=== PATIENT | male | born 1980 | race Caucasian/White ===

== ENCOUNTER 2022-05-19 12:23 | Emergency (ER) | payer BC ==
[2022-05-19 12:48] VITALS: BP 124/80; PULSE 74; RESP 18; TEMP 98.6; BMI 25.0
[2022-05-19 13:19] LABS: HEMATOCRIT 41.5 % (35.4-49); HEMOGLOBIN 14.8 G/dL (11.7-16.9); MCH 33.6 pg (25.7-33.7); MCHC 35.6 g/dl (32.0-35.9); MEAN CELL VOLUME 94.4 fl (80-96); MEAN PLT VOLUME 8.5 fl (7.5-11.1); PLATELET COUNT 218.8 10^3/uL (134-434); RDW 12.6 % (11.9-15.9); WHITE BLOOD COUNT 8.2 10^3/uL (4.0-10.8)
[2022-05-19 13:26] LABS: ALBUMIN 4.6 g/dl (3.4-5.0); BILIRUBIN,TOTAL 0.7 mg/dl (0.2-1); CALCIUM 9.3 mg/dl (8.5-10); PHOSPHOROUS 3.5 mg/dl (2.5-4.9); TOT PROT 7.2 g/dl (6.4-8.2)
[2022-05-19 14:31] LABS: PLATELET ESTIMATE ADEQUATE
== END 2022-05-19 14:15 | disposition home or self-care (01) ==
LOC: FER 12:23
DX: R07.89 Other chest pain (principal); R42 Dizziness and giddiness
CPT/HCPCS: 36415; 71046-TC-FY; 80053; 83735; 84100; 84484; 85027; 93005; 99285-25

== ENCOUNTER 2022-09-03 10:34 | Emergency (ER) | payer BC ==
[2022-09-03 10:43] VITALS: BP 121/88; PULSE 65; RESP 16; TEMP 98.9; BMI 25.0
== END 2022-09-03 11:10 | disposition home or self-care (01) ==
LOC: FER 10:34
DX: H02.844 Edema of left upper eyelid (principal); H57.12 Ocular pain, left eye; L03.213 Periorbital cellulitis
CPT/HCPCS: 99283-25